=== PATIENT | male | born 1955 | race Caucasian/White ===

== ENCOUNTER → 2017-11-22 12:30 | Outpatient (CLI) | payer MEDICAID, SELFPAY ==
--- NOTE | 2017-11-22 12:36 | XR_ITS ---
XR chest 2V HISTORY: ITS.REASON: COUGH ORDERING PHYSICIAN: Brynn Guillen PATIENT AGE: 62 years COMPARISON: None available FINDINGS: The cardiomediastinal silhouette and pulmonary vascularity are within normal limits. The lungs are clear without infiltrates, suspicious nodules, or pleural effusions. No acute bony abnormalities. IMPRESSION: Negative chest, no acute finding
== END ==
PROVIDERS: PCP Internal Medicine Adolescent Medicine; Visit Provider Nurse Practitioner Family
DX: R05 Cough (principal)
CPT/HCPCS: 71046

== ENCOUNTER → 2017-11-30 08:49 | Outpatient (CLI) | payer MEDICAID, SELFPAY ==
[2017-11-30 09:20] LABS: Basophils # 0.1 K/mm3 (0-0.2); Basophils % 0.9 % (0.1-2.0); Eosinophils # 0.2 K/mm3 (0.0-0.4); Hematocrit 48.3 % (42.0-52.0); Lymphocytes # 2.2 K/mm3 (0.7-4.5); Lymphocytes % 32.5 K/mm3 (10-50); Mean Corpuscular HGB Conc 33.1 g/dL (31.8-35.4); Mean Corpuscular Hemoglobin 28.9 pg (27.0-31.2); Mean Corpuscular Volume 87.4 fl (80-94); Mean Platelet Volume 7.5 fl (7.4-10.4); Monocytes # 0.5 K/mm3 (0.1-1.0); Monocytes % 7.4 % (1.7-9.3); Neutrophils # 3.9 K/mm3 (1.8-7.8); Neutrophils % 56.2 % (37.0-80.0); Platelet Count 273 K/mm3 (142-424); Red Blood Count 5.52 M/mm3 (4.60-6.20); Red Cell Distribution Width 13.4 % (11.5-17.5); White Blood Count 6.9 K/mm3 (4.8-10.8)
[2017-11-30 12:33] LABS: Alanine Aminotransferase 61 U/L (12-78); Albumin Level 3.4 gm/dL (3.4-5.0); Albumin/Globulin Ratio 0.9 (1.1-1.8); Alkaline Phosphatase 72 U/L (46-116); Anion Gap 11.6 mEq/L (5-15); Aspartate Amino Transferase 31 U/L (15-37); Bilirubin,Total 0.3 mg/dL (0.2-1.0); Blood Urea Nitrogen 25 mg/dL (7-18); Calcium 9.1 mg/dL (8.5-10.1); Carbon Dioxide 29 mmol/L (21.0-32.0); Chloride 105 mmol/L (98-107); Chol/HDL Ratio 4.6 (1-3.5); Cholesterol 157 mg/dL (140-200); Creatinine,Serum 0.91 mg/dL (0.70-1.30); Estimated Glomerular Filt Rate 85 ml/min (>60); GFR (African American) 103 ML/MIN (>60); Globulin 3.8 gm/dl (1.3-3.2); Glucose 100 mg/dL (74-106); HDL Cholesterol 34 mg/dL (27-67); LDL Cholesterol 105 mg/dL (0-130); Potassium 3.6 mmoL/L (3.5-5.1); Sodium 142 mmol/L (136-145); Total Protein,Serum 7.2 gm/dL (6.4-8.2); Triglycerides 92 mg/dL (30-200); VLDL Cholesterol 18 mg/dL (0-40)
== END ==
PROVIDERS: Visit Provider Internal Medicine Adolescent Medicine
DX: E78.5 Hyperlipidemia, unspecified (principal); I10 Essential (primary) hypertension; R05 Cough
CPT/HCPCS: 36415; 80053; 80061; 85025

== ENCOUNTER 2018-07-18 14:49 | Inpatient (IN) ==
--- NOTE | 2018-07-18 16:01 | Emergency Department Note ---
ED Disposition Clinical Impression: SBO (small bowel obstruction) Abdominal pain Qualifiers: Abdominal location: periumbilical Qualified Code(s): R10.33 - Periumbilical pain Disposition: Admitted as Observation Condition on Discharge: Fair Instructions: DI for Acute Abdomen, Acute Abdominal Pain Additional Instructions: DI for Small Bowel Obstruction DI for Paraumbilical Hernia-incarcerated Referrals: Brynn Guillen APRN [Primary Care Provider] - - Critical Care Critical Care Time: No Attestation: On 07/18/18, the high probability of a clinically significant, sudden or life threatening deterioration of the following system(s) required my full and direct attention, intervention and personal management. The time I documented below is in addition to time spent performing reported procedures but includes the following listed in this critical care notation. Medical Decision Making - Medical Records Medical records reviewed: Yes: I reviewed the patient's medical records. - Tobin Inquiry Pt receiving controlled substance: No Tobin was queried for this patient: No Vital Signs: 07/18/18 14:55 07/18/18 16:19 07/18/18 16:59 Temperature 97.8 F Temperature Source Oral Tympanic Pulse Rate [Right Brachial] 71 87 81 Respiratory Rate 20 20 Blood Pressure [Right Arm] 142/98 H 143/93 H 136/89 Blood Pressure Mean [Right Arm] 112 109 104 Blood Pressure Source [Right Arm] Automatic Cuff Automatic Cuff Automatic Cuff Blood Pressure Position [Right Arm] Sitting Sitting Sitting 02 Sat by Pulse Oximetry 97 94 L 96 Oxygen Delivery Method Room Air Room Air Room Air 07/18/18 17:42 Temperature Temperature Source Pulse Rate [Right Brachial] 67 Respiratory Rate Blood Pressure [Right Arm] 138/85 Blood Pressure Mean [Right Arm] 102 Blood Pressure Source [Right Arm] Automatic Cuff Blood Pressure Position [Right Arm] Sitting 02 Sat by Pulse Oximetry 96 Oxygen Delivery Method Room Air - Lab Data Lab results reviewed: Yes: I reviewed the patient's lab results. Lab Results 07/18/18 15:45: WBC 9.7, RBC 5.92, Hgb 16.5, Hct 50.7, MCV 85.5, MCH 27.9, MCHC 32.6, RDW 13.1, Plt Count 246, MPV 6.9 L, Neut % (Auto) 73.5, Lymph % (Auto) 19.3, [place] % (Auto) 6.3, Eos % (Auto) 0.5, Baso % (Auto) 0.5, Neut # (Auto) 7.1, Lymph # (Auto) 1.9, [place] # (Auto) 0.6, Eos # (Auto) 0.0, Baso # (Auto) 0.1 07/18/18 15:45: Sodium 134 L, Potassium 3.9, Chloride 97 L, Carbon Dioxide 27, Anion Gap 13.9, BUN 23 H, Creatinine 0.85, Estimated Creat Clear 92, Estimated GFR 92, Est GFR ( Amer) 111, Glucose 110 H, Calcium 9.4 Result diagrams: 07/18/18 15:45 07/18/18 15:45 Orders (Tests/Meds): ED MEDICATIONS Discontinued Medications Generic Name Dose Route Start Last Admin Trade Name Freq PRN Reason Stop Dose Admin Diatrizoate Meglum/Diatrizoate Sod 30 ml 07/18/18 15:55 07/18/18 16:02 Gastrografin 66%-10% 30ml PO 07/18/18 15:56 30 ml ONCE ONE Administration Iopamidol 75 ml 07/18/18 17:47 07/18/18 17:48 [id number]; 75ml Vial IV 07/18/18 17:48 75 ml ONCE ONE Administration Protocol Ketorolac Tromethamine 30 mg 07/18/18 15:56 07/18/18 16:02 Toradol 30mg/Ml Vial IV 07/18/18 15:57 30 mg ONCE ONE Administration Sodium Chloride 10 ml 07/18/18 17:47 07/18/18 17:48 Rad-Saline Flush 10ml Syringe IV 07/18/18 17:48 10 ml ONCE ONE Administration ORDERS Category Date Time Status CT abdomen pelvis w con Stat Cat Scan 07/18/18 15:55 Taken - CT Data CT Scan: Abdomen, Pelvis Time Received: 18:[address] Reviewed: Yes: I have reviewed the patient's CT results, I have viewed the radiologist's interpretation Preliminary Findings: Abnormal (High grade small bowel obstruction) - Physician Consults Physician Consulted: Dr. Hong Time: 18:25 (Surgery.Admit.) Reason -: Admission, Pt condition Abdominal Pain HPI - General Chief Complaint: Abdominal Pain Stated Complaint: abd pain Time Seen by Provider: 07/18/18 15:56 Mode of Arrival: Family Vehicle Source of Information: Patient Limitations: No Limitations Description of Symptoms (Recalled from ER Triage Doc. by RN): C/O ABDOMINAL PAIN SINCE NOON R/T UMBILOICAL HERNIA. USUALLY RESOLVES AFTER LYING ODWN OR APPLYING A BACK BRACE BUT NO RELIEF TODAY. ALSO C/O BM BEING YELLOW X 10-14 DAYS - History of Present Illness MD complaint: abdominal pain Onset (ago): hour(s) (3) Consistency: constant Location: periumbilical Severity: moderate Severity scale (1-10): 7 Quality: dull Radiation: none Migration to: no migration Relieving factors: nothing Exacerbating factors: nothing - Related Data Home Medications Medication Instructions Recorded Confirmed Atorvastatin Calcium [Atorvastatin 20 mg PO HS 07/18/18 07/18/18 20mg Tab] Lisinopril [Lisinopril 20mg Tab] 20 mg PO DAILY 07/18/18 07/18/18 Mvit,Calcium,Iron,Mins/A.acids 1 each PO DAILY 07/18/18 07/18/18 [K-[place] Double Strength Capsule] Omeprazole [Omeprazole 40mg 40 mg PO DAILY 07/18/18 07/18/18 Capsule] cloNIDine HCl [cloNIDine 0.1mg 0.1 mg PO BID 07/18/18 07/18/18 Tablet] clonazePAM [Clonazepam] 1 mg PO HS 07/18/18 07/18/18 hydroCHLOROthiazide [HCTZ 25mg 25 mg PO DAILY 07/18/18 07/18/18 tab] Allergies Allergy/AdvReac Type Severity Reaction Status Date / Time No Known Allergies Allergy Verified 07/18/18 15:04 [facility] History I have reviewed the patient's past medical history: Yes Medical History: Reports:: Cancer (SKIN CANCER) - Social History Alcohol Intake: never - Psychiatric History Expresses thoughts of harming self/others: None Suicide Plan Description: No Plan ROS Obtained: Yes All systems reviewed & no additional complaints - Constitutional Constitutional: Reports system reviewed and no additional complaints, except as docu, Denies chills, Denies fever(s) - Cardiovascular Cardiovascular: Reports system reviewed and no additional complaints, except as docu, Denies chest pain, Denies dyspnea - Respiratory Respiratory: Yes system reviewed and no additional complaints, except as docu, No dyspnea - Gastrointestinal Gastrointestingal: Reports: system reviewed and no additional complaints, except as docu, abdominal pain. Denies: diarrhea, nausea, vomiting - Neurologic Neurologic: Reports system reviewed and no additional complaints, except as docu, Denies dizziness, Denies headache(s) Physical Exam - General General appearance: alert, in distress (mild) - Head Head exam: atraumatic, normocephalic, normal inspection - Respiratory Respiratory exam: Present: normal lung sounds bilaterally. Absent: respiratory distress - Cardiovascular Cardiovascular exam: Present: regular rate, normal rhythm. Absent: JVD - Abdominal Exam Abdominal exam: Present: soft, tenderness, normal bowel sounds. Absent: distention, guarding, organomegaly Abdominal tenderness: Present: RLQ, moderate Comment: Periumbilical tenderness - Back Exam Back exam: Present: normal inspection. Absent: tenderness - Neurological Exam Neurological exam: Present: alert, oriented X3 - Psychiatric Psychiatric exam: Present: normal affect, normal mood
[2018-07-18 16:06] LABS: Basophils # 0.1 K/mm3 (0-0.2); Basophils % 0.5 % (0.1-2.0); Eosinophils % 0.5 % (0.1-12.0); Hematocrit 50.7 % (42.0-52.0); Hemoglobin 16.5 g/dL (14.1-18.0); Lymphocytes # 1.9 K/mm3 (0.7-4.5); Lymphocytes % 19.3 % (10-50); Mean Corpuscular HGB Conc 32.6 g/dL (31.8-35.4); Mean Corpuscular Hemoglobin 27.9 pg (27.0-31.2); Mean Corpuscular Volume 85.5 fl (80-94); Mean Platelet Volume 6.9 fl (7.4-10.4); Monocytes # 0.6 K/mm3 (0.1-1.0); Monocytes % 6.3 % (1.7-9.3); Neutrophils # 7.1 K/mm3 (1.8-7.8); Neutrophils % 73.5 % (37.0-80.0); Platelet Count 246 K/mm3 (142-424); Red Blood Count 5.92 M/mm3 (4.60-6.20); Red Cell Distribution Width 13.1 % (11.5-17.5); White Blood Count 9.7 K/mm3 (4.8-10.8)
[2018-07-18 16:09] LABS: Anion Gap 13.9 mEq/L (5-15); Calcium 9.4 mg/dL (8.5-10.1); Potassium 3.9 mmoL/L (3.5-5.1)
[2018-07-18 19:05] LABS: INR 1.04 (0.9-1.1); Prothrombin Time 10.7 seconds (9.4-11.8)
[2018-07-18 19:10] LABS: Activated Partial Thrombo Time 25.4 seconds (23.6-34.0)
--- NOTE | 2018-07-18 21:04 | Operative Note ---
Date of procedure: 07/18/18 Pre-op Diagnosis:: Incarcerated periumbilical hernia with small bowel obstruction Post-op Diagnosis:: Same Procedure performed:: Open repair of incarcerated periumbilical hernia Surgeon:: Rod Hong MD [employer] CLEANER:: Gustavo Pedroza Anesthesia: GETA Estimated blood loss (mL): 25 Operative findings:: Incarcerated preperitoneal fat and incarcerated small bowel loop Small bowel viable Operative note:: After informed consent was obtained the patient was taken to the operating room and placed in the supine position. General anesthesia was induced and his abdomen was prepped and draped in a sterile fashion. Palpation revealed at least partial reduction of the incarcerated loop with anesthesia. An incision was made overlying the area of incarceration. A combination of sharp dissection, blunt dissection, and dissection with electrocautery was utilized to dissect through the subcutaneous tissue. Careful dissection with Metzenbaum scissors was utilized to free the fascial margin. A small loop of bowel was noted and a small portion of incarcerated preperitoneal fat noted. All contents were carefully returned to the abdominal cavity. For improved inspection of the small bowel the medial and lateral margins of the fascia were slightly extended with electrocautery. The underlying small bowel was carefully elevated. Inspection revealed the tissue to be normal with no signs of ischemia or injury. All contents were returned and fascia was reapproximated with interrupted 0 Ethibond. The wound was irrigated and skin was closed with troy. Dressings were applied. The patient's anesthetic agents were reversed and he was extubated prior to transfer to recovery. Condition: stable Disposition: PACU Specimens:: None Complications:: No immediate
--- NOTE | 2018-07-18 21:18 | Progress Note ---
[facility] Anesthesia Checklist - Patient Identification Patient Identification: Arm Band, Verbal (Name & ) - Structural Data Admitted From: Home Planned Operative Procedure/s: open hernia repair Consent for Planned Operative Procedure(s) Verified: Yes Verified Documents: Surgical Consent - NPO Status Verified Time NPO: 12:00 - Additional verifications Patient : No Anesthesia Reactions: No Hx Blood Transfusions: No Blood Transfusion Reaction: No Cephalosporin Allergy: No Previous Colonoscopy: No - Cardiovascular Assessment Heart Sounds: S1 & S2 Pulse Strength: Baseline Pulse Rhythm: Regular Peripheral Edema: No - Airway Assessment C-Spine Mobility Assessed: Yes TMJ Mobility Assessed: Yes Dentition: Good Dentition - Neurological Assessment Level of Consciousness: Awake, Alert, Appropriate Hx Seizures: No Numbness or tingling in extremities: No - Anesthesia Plan Anesthesia Risk discussed: Yes Anesthesia Plan: Verified ASA Class: II Anesthesia Type: General [facility] History I have reviewed the patient's past medical history: Yes Medical History: Reports:: Cancer (SKIN CANCER) - *Social History Alcohol Intake: never - Psychiatric History Expresses thoughts of harming self/others: None Suicide Plan Description: No Plan
--- NOTE | 2018-07-18 21:19 | Progress Note ---
[facility] Anesthesia Record Part I Intake, IV Amount: 800 Estimated blood loss (mL): 10 Urine output (mL): 100 Blood Products used (#): none Blood Pressure: 137/86 SaO2: 94 Pulse Rate: 97 Respiratory Rate: 20 Temperature: 97.7 F Patient is:: Awake, Nasal O2, Stable Stable to PACU at:: 21:14
--- NOTE | 2018-07-18 21:19 | Progress Note ---
[facility] Anesthesia Record Part II Discharge Time: 21:44 Destination: Medical Surgical Department PACU nurse assessment reviewed?: Yes Patient Condition:: Good Anesthesia Complications:: None
[2018-07-19 07:01] LABS: Basophils % 0.2 % (0.1-2.0); Hematocrit 45.5 % (42.0-52.0); Hemoglobin 14.9 g/dL (14.1-18.0); Lymphocytes # 1.2 K/mm3 (0.7-4.5); Lymphocytes % 8.6 % (10-50); Mean Corpuscular HGB Conc 32.8 g/dL (31.8-35.4); Mean Corpuscular Hemoglobin 28.1 pg (27.0-31.2); Mean Corpuscular Volume 85.6 fl (80-94); Mean Platelet Volume 7.3 fl (7.4-10.4); Monocytes # 0.7 K/mm3 (0.1-1.0); Monocytes % 4.8 % (1.7-9.3); Neutrophils # 11.9 K/mm3 (1.8-7.8); Neutrophils % 86.4 % (37.0-80.0); Platelet Count 245 K/mm3 (142-424); Red Blood Count 5.31 M/mm3 (4.60-6.20); Red Cell Distribution Width 13.3 % (11.5-17.5); White Blood Count 13.7 K/mm3 (4.8-10.8)
[2018-07-19 07:12] LABS: Anion Gap 13.3 mEq/L (5-15); Calcium 8.5 mg/dL (8.5-10.1); Potassium 4.3 mmoL/L (3.5-5.1)
--- NOTE | 2018-07-19 07:16 | Progress Note ---
Subjective Patient reports: feels better Exam Vital signs and Labs for Last 24 Hours: Temp Pulse Resp BP Pulse Ox 98.4 F 85 16 115/77 94 L 07/19/18 04:01 07/19/18 04:01 07/19/18 04:01 07/19/18 04:01 07/19/18 04:01 Laboratory Results - last 24 hr 07/18/18 15:45: WBC 9.7, RBC 5.92, Hgb 16.5, Hct 50.7, MCV 85.5, MCH 27.9, MCHC 32.6, RDW 13.1, Plt Count 246, MPV 6.9 L, Neut % (Auto) 73.5, Lymph % (Auto) 19.3, [place] % (Auto) 6.3, Eos % (Auto) 0.5, Baso % (Auto) 0.5, Neut # (Auto) 7.1, Lymph # (Auto) 1.9, [place] # (Auto) 0.6, Eos # (Auto) 0.0, Baso # (Auto) 0.1 07/18/18 15:45: Sodium 134 L, Potassium 3.9, Chloride 97 L, Carbon Dioxide 27, Anion Gap 13.9, BUN 23 H, Creatinine 0.85, Estimated Creat Clear 92, Estimated GFR 92, Est GFR ( Amer) 111, Glucose 110 H, Calcium 9.4 07/18/18 15:45: PT 10.7, INR 1.04, APTT 25.4 07/19/18 00:00: Urine Color Yellow, Urine Appearance Clear, Urine pH 6.5, Ur Specific [place] 1.015, Urine Protein Negative, Urine Glucose (UA) Negative, Urine Ketones Trace, Urine Blood Negative, Urine Nitrate Negative, Urine Bilirubin Negative, Urine Urobilinogen 0.2, Ur Leukocyte Esterase Negative, Urine WBC Occasional, Urine Bacteria Trace 07/19/18 06:30: WBC 13.7 H D, RBC 5.31, Hgb 14.9, Hct 45.5, MCV 85.6, MCH 28.1, MCHC 32.8, RDW 13.3, Plt Count 245, MPV 7.3 L, Neut % (Auto) 86.4 H, Lymph % (Auto) 8.6 L, [place] % (Auto) 4.8, Eos % (Auto) 0.0 L, Baso % (Auto) 0.2, Neut # (Auto) 11.9 H, Lymph # (Auto) 1.2, [place] # (Auto) 0.7, Eos # (Auto) 0.0, Baso # (Auto) 0.0 07/19/18 06:30: Sodium 134 L, Potassium 4.3, Chloride 101, Carbon Dioxide 24, Anion Gap 13.3, BUN 21 H, Creatinine 0.88, Estimated Creat Clear 90, Estimated GFR 88, Est GFR ( Amer) 107, Glucose 135 H D, Calcium 8.5 I & O for Last 24 hours: Intake & Output 07/16/18 07/17/18 07/18/18 07/19/18 11:59 11:59 11:59 11:59 Intake Total 1560 / 1560 Output Total 700 / 700 Balance 860 / 860 Weight 181 lb 5 oz - Constitutional no acute distress - *Routine Respiratory Exam Absent: respiratory distress - *Routine Cardiovascular Exam Present: RRR - *Routine Abdominal Exam Present: soft Progress Note: A&P (1) Umbilical hernia, incarcerated Status: Acute Assessment and plan: Overall, doing well status post open repair (no mesh) Remove Rodriguez catheter Increase ambulation Await return of bowel function Current Visit: Yes (2) SBO (small bowel obstruction) Status: Acute Current Visit: Yes
--- NOTE | 2018-07-19 08:21 | Pharmacy Consult Notes ---
[facility] Pharmacy VTE Monitoring - Patient Demographics Admission date: 07/19/18 Report Date: 07/19/18 Time: 08:20 Allergies/Adverse Reactions: Patient Allergies No Known Allergies Allergy (Verified 07/18/18 15:04) Height: 1.7 m Weight: 82.242 kg Patient Problems: Current Active Problems Abdominal pain (Acute) SBO (small bowel obstruction) (Acute) Umbilical hernia, incarcerated (Acute) - VTE Risk Labs: VTE Related Lab Results Hgb 14.9 g/dL (14.1-18.0) 07/19/18 06:30 Hct 45.5 % (42.0-52.0) 07/19/18 06:30 Plt Count 245 K/mm3 (142-424) 07/19/18 06:30 PT 10.7 seconds (9.4-11.8) 07/18/18 15:45 INR 1.04 (0.9-1.1) 07/18/18 15:45 APTT 25.4 seconds (23.6-34.0) 07/18/18 15:45 BUN 21 mg/dL (7-18) H 07/19/18 06:30 Creatinine 0.88 mg/dL (0.70-1.30) 07/19/18 06:30 Estimated Creat Clear 90 mL/min (50-200) 07/19/18 06:30 Was VTE Risk Assessment Performed: Yes VTE Score: 2 VTE Risk Level: Very Low Risk Clinical Trial Participant: No - Prophylaxis VTE Prophylaxis Ordered?: Yes Types of VTE Prophylaxis: TEDS Knee High Location of Applied Device: Bilateral Lower Extremeties
[2018-07-19 08:56] LABS: Lymphocytes % 9 % (10-50); Monocytes % 2 % (2-9); Neutrophils % 89 % (42-76); Total Cells Counted 100
[2018-07-20 06:33] LABS: Basophils # 0.1 K/mm3 (0-0.2); Basophils % 0.5 % (0.1-2.0); Eosinophils # 0.1 K/mm3 (0.0-0.4); Eosinophils % 0.8 % (0.1-12.0); Hematocrit 43.6 % (42.0-52.0); Hemoglobin 14.2 g/dL (14.1-18.0); Lymphocytes # 2.7 K/mm3 (0.7-4.5); Lymphocytes % 24.6 % (10-50); Mean Corpuscular HGB Conc 32.7 g/dL (31.8-35.4); Mean Corpuscular Hemoglobin 27.9 pg (27.0-31.2); Mean Corpuscular Volume 85.5 fl (80-94); Mean Platelet Volume 7.1 fl (7.4-10.4); Monocytes # 0.7 K/mm3 (0.1-1.0); Monocytes % 6.1 % (1.7-9.3); Neutrophils # 7.6 K/mm3 (1.8-7.8); Platelet Count 215 K/mm3 (142-424); Red Cell Distribution Width 13.3 % (11.5-17.5); White Blood Count 11.1 K/mm3 (4.8-10.8)
--- NOTE | 2018-07-20 07:42 | Progress Note ---
Subjective Patient reports: feels better Narrative: Patient has been tolerating full liquid diet without difficulty. Patient feels like he is ready to go home. Exam Vital signs and Labs for Last 24 Hours: Temp Pulse Resp BP Pulse Ox 98.6 F 85 18 126/74 92 L 07/20/18 04:00 07/20/18 04:00 07/20/18 04:00 07/20/18 04:00 07/20/18 04:00 Laboratory Results - last 24 hr 07/19/18 06:30: Total Counted 100, Neutrophils % (Manual) 89 H, Lymphocytes % (Manual) 9 L, Monocytes % (Manual) 2, Platelet Estimate Normal 07/20/18 06:24: WBC 11.1 H, RBC 5.10, Hgb 14.2, Hct 43.6, MCV 85.5, MCH 27.9, MCHC 32.7, RDW 13.3, Plt Count 215, MPV 7.1 L, Neut % (Auto) 68.0, Lymph % (Auto) 24.6, [place] % (Auto) 6.1, Eos % (Auto) 0.8, Baso % (Auto) 0.5, Neut # (Auto) 7.6, Lymph # (Auto) 2.7, [place] # (Auto) 0.7, Eos # (Auto) 0.1, Baso # (Auto) 0.1 I & O for Last 24 hours: Intake & Output 07/17/18 07/18/18 07/19/18 07/20/18 11:59 11:59 11:59 11:59 Intake Total 1560 / 1560 600 / 600 Output Total 700 / 700 Balance 860 / 860 600 / 600 Weight 181 lb 5 oz - *Routine Abdominal Exam Present: soft Comments: Incision clean. Small amount of bruising without hematoma. No evidence of any recurrence. Progress Note: A&P (1) Umbilical hernia, incarcerated Status: Acute Current Visit: Yes (2) SBO (small bowel obstruction) Status: Acute Current Visit: Yes Assessment and Plan for All Diagnoses:: I will see how patient does with breakfast this morning. If he tolerates this and is doing well without increasing pain, nausea, or bleeding may build to be discharged home.
--- NOTE | 2018-07-20 09:40 | Discharge Summary ---
General - General Admission date:: 07/18/18 Discharge date: 07/20/18 HPI HPI: Patient is a 63-year-old developed acute pain focally to the right of the umbilicus approximately noon time on 07/18/18. This was quite severe and he presented to the emergency department at [facility]. Evaluation included CT scan which revealed findings of high-grade obstruction secondary to loop of bowel from incarcerated umbilical hernia. Surgical consultation was obtained. Hospital Course Hospital Course: Patient was seen and examined by Dr. Hong. He was taken emergently to the operating room at which time he underwent primary repair of umbilical hernia with incarcerated loop of small bowel. Loop of small bowel was visualized to be viable without necrosis and no resection was necessary. Please see operative dictation for complete details. He was admitted postoperatively for inpatient management. His diet was cautiously advanced from clear liquid to full liquid. He had his Rodriguez catheter removed on postoperative day #1. The evening of postoperative day #1 he advanced to a full liquid diet and tolerated this without difficulty. Following morning patient was seen and examined. He has a small amount of bruising which seemed inconsequential at the incision site. Patient had consumed full liquid breakfast without any difficulty. He had no nausea or increasing pain or abdominal bloating. He was passing gas. Plan was made for discharge home at this time. Objective Vital signs: Temp Pulse Resp BP Pulse Ox 97.6 F 61 20 118/94 H 96 07/20/18 08:00 07/20/18 08:00 07/20/18 08:00 07/20/18 08:00 07/20/18 08:00 - Detailed Eye Exam Eyelids: Left normal inspection Results Labs on day of discharge: Labs from last 24 hours 07/20/18 06:24 WBC 11.1 H RBC 5.10 Hgb 14.2 Hct 43.6 MCV 85.5 MCH 27.9 MCHC 32.7 RDW 13.3 Plt Count 215 MPV 7.1 L Neut % (Auto) 68.0 Lymph % (Auto) 24.6 [place] % (Auto) 6.1 Eos % (Auto) 0.8 Baso % (Auto) 0.5 Neut # (Auto) 7.6 Lymph # (Auto) 2.7 [place] # (Auto) 0.7 Eos # (Auto) 0.1 Baso # (Auto) 0.1 DS: Diagnosis - Discharge Diagnosis (1) Umbilical hernia, incarcerated Status: Acute (2) SBO (small bowel obstruction) Status: Acute Discharge Plan - Patient Discharge Instructions ACTIVITY: No heavy lifting DIET: advance to your usual diet Patient Instructions: DI for Surgical Site Infection - Follow up Plan Follow up with: Rod Hong MD [Staff Physician] - 07/24/18 Disposition: Home, [facility] Medications: Home Medications Medication Instructions Recorded Confirmed Type Aspirin [Aspir 81] 81 mg PO DAILY 07/18/18 07/18/18 History Lisinopril [Lisinopril 40mg Tablet] 40 mg PO DAILY 07/19/18 07/19/18 History clonazePAM [Clonazepam] 0.5 mg PO HS 07/19/18 07/19/18 History hydroCHLOROthiazide 12.5 mg PO DAILY 07/19/18 07/19/18 History [Hydrochlorothiazide 12.5mg Tab] Prescriptions/Medication Reconciliation: New Hydrocod/Acet 5/325 mg [[place] 5/325mg tablet] 1 - 2 tab PO Q6HP PRN #21 tab PRN Reason: Moderate Pain Continue Aspirin [Aspir 81] 81 mg PO DAILY hydroCHLOROthiazide [Hydrochlorothiazide 12.5mg Tab] 12.5 mg PO DAILY clonazePAM [Clonazepam] 0.5 mg PO HS Lisinopril [Lisinopril 40mg Tablet] 40 mg PO DAILY Discontinued Omeprazole [Omeprazole 40mg Capsule] 40 mg PO DAILY Atorvastatin Calcium [Atorvastatin 20mg Tab] 20 mg PO HS cloNIDine HCl [cloNIDine 0.1mg Tablet] 0.1 mg PO BID Mvit,Calcium,Iron,Mins/A.acids [K-[place] Double Strength Capsule] 1 each PO DAILY
== END 2018-07-20 11:11 | disposition home or self-care (01) ==
LOC: ER 14:49 → 2ND 19:31
PROVIDERS: ADMIT Surgery; ATTEND Surgery

== ENCOUNTER → 2018-12-18 09:41 | Outpatient (CLI) | payer MEDICAID, SELFPAY ==
--- NOTE | 2018-12-18 09:48 | XR_ITS ---
XR hip LT 2-3V w/pelvis HISTORY: Chronic hip pain ORDERING PHYSICIAN: Brynn Guillen PATIENT AGE: 63 years COMPARISON: None FINDINGS: There are mild osteoarthritic changes of both hips as seen on the AP view of the pelvis. Mild osteoarthritis also involves both SI joints and there are facet arthritic changes at L4-L5 and L5-S1 and L3-L4. No fracture or dislocation. Small os acetabuli are noted bilaterally. There is a small benign-appearing cystic lesion in the left femoral neck at 5 mm. There are multiple calcific densities in the perineal area. 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
--- NOTE | 2018-12-18 09:48 | XR_ITS ---
XR sacroiliac joint BI min 3V CLINICAL INDICATION: ITS.REASON: LT HIP PAIN,PAIN OF LT SI JOINT ORDERING PHYSICIAN: Brynn Guillen PATIENT AGE: 63 years Comparison: None FINDINGS: There are mild hypertrophic changes of the SI joints on both sides. No fusion or lytic process evident. IMPRESSION: Mild osteoarthritic change of the SI joints
[2018-12-18 13:07] LABS: Alanine Aminotransferase 45 U/L (12-78); Albumin Level 3.6 gm/dL (3.4-5.0); Albumin/Globulin Ratio 1.1 (1.1-1.8); Alkaline Phosphatase 84 U/L (46-116); Aspartate Amino Transferase 21 U/L (15-37); Bilirubin,Total 0.7 mg/dL (0.2-1.0); Blood Urea Nitrogen 28 mg/dL (7-18); Calcium 9.6 mg/dL (8.5-10.1); Carbon Dioxide 27 mmol/L (21.0-32.0); Chloride 106 mmol/L (98-107); Chol/HDL Ratio 3.6 (1-3.5); Cholesterol 145 mg/dL (140-200); Creatinine,Serum 0.97 mg/dL (0.70-1.30); Estimated Glomerular Filt Rate 79 ml/min (>60); GFR (African American) 95 ML/MIN (>60); Globulin 3.4 gm/dl (1.3-3.2); Glucose 103 mg/dL (74-106); HDL Cholesterol 40 mg/dL (27-67); LDL Cholesterol 93 mg/dL (0-130); Sodium 144 mmol/L (136-145); Triglycerides 58 mg/dL (30-200); VLDL Cholesterol 12 mg/dL (0-40)
== END ==
PROVIDERS: PCP Nurse Practitioner Family; Visit Provider Nurse Practitioner Family
DX: I10 Essential (primary) hypertension (principal); E78.5 Hyperlipidemia, unspecified; M25.552 Pain in left hip; M53.3 Sacrococcygeal disorders, not elsewhere classified
CPT/HCPCS: 36415; 72202; 73502; 80053; 80061

== ENCOUNTER → 2019-05-23 09:37 | Outpatient (CLI) | payer MEDICAID, SELFPAY ==
[2019-05-23 11:13] LABS: Alanine Aminotransferase 42 U/L (12-78); Albumin Level 3.7 gm/dL (3.4-5.0); Albumin/Globulin Ratio 1.1 (1.1-1.8); Alkaline Phosphatase 82 U/L (46-116); Anion Gap 13.5 mEq/L (5-15); Aspartate Amino Transferase 29 U/L (15-37); Bilirubin,Total 0.7 mg/dL (0.2-1.0); Blood Urea Nitrogen 22 mg/dL (7-18); Calcium 9.7 mg/dL (8.5-10.1); Carbon Dioxide 27 mmol/L (21.0-32.0); Chloride 107 mmol/L (98-107); Chol/HDL Ratio 3.8 (1-3.5); Cholesterol 150 mg/dL (140-200); Creatinine,Serum 0.83 mg/dL (0.70-1.30); Estimated Glomerular Filt Rate 94 ml/min (>60); GFR (African American) 114 ML/MIN (>60); Globulin 3.4 gm/dl (1.3-3.2); Glucose 96 mg/dL (74-106); HDL Cholesterol 40 mg/dL (27-67); LDL Cholesterol 92 mg/dL (0-130); Potassium 3.5 mmoL/L (3.5-5.1); Sodium 144 mmol/L (136-145); Total Protein,Serum 7.1 gm/dL (6.4-8.2); Triglycerides 89 mg/dL (30-200); VLDL Cholesterol 18 mg/dL (0-40)
== END ==
PROVIDERS: Visit Provider Nurse Practitioner Family
DX: I10 Essential (primary) hypertension (principal); E78.5 Hyperlipidemia, unspecified
CPT/HCPCS: 36415; 80053; 80061

== ENCOUNTER 2020-02-20 18:47 | Emergency (ER) | payer BC, SELFPAY ==
[2020-02-20 18:47] VITALS: BP 162/110; PULSE 78; RESP 18; TEMP 36.7; O2SAT 99; BMI 29.7
--- NOTE | 2020-02-20 19:01 | XR_ITS ---
PROCEDURE: XR RIBS RT MIN 3V W CXR1V CLINICAL INDICATION: fall Right rib pain following injury COMPARISON: CXR2V XR chest 2V from 11/22/2017 FINDINGS: A frontal view of the chest shows no acute finding. Three views of the right ribs are obtained. There is a subtle lucency through the lateral aspect of the right 8th rib suggesting a nondisplaced fracture. IMPRESSION: Nondisplaced right 8th rib fracture Dictated by: Case Will MD 02/20/2020 22:17 Electronically signed by Case Will MD in [place] 02/20/2020 22:17
--- NOTE | 2020-02-20 19:07 | PC.NURSE ---
to rad at this time
--- NOTE | 2020-02-20 19:21 | HMH.EDGENADL ---
ED Disposition Clinical Impression: Chest wall contusion Disposition: Home, Self-Care Condition on Discharge: Good Instructions: DI for Acute Pain -- Adult Prescriptions: Nabumetone 750 mg PO BID 10 Days #20 tab Transmission Status: Sent to [facility] Tizanidine HCl [Zanaflex 4mg tablet] 4 mg PO TID 10 Days #30 tab Transmission Status: Pending to [facility] Referrals: Brynn Guillen APRN [Primary Care Provider] - - Critical Care Critical Care Time: No Attestation: On 02/20/20, the high probability of a clinically significant, sudden or life threatening deterioration of the following system(s) required my full and direct attention, intervention and personal management. The time I documented below is in addition to time spent performing reported procedures but includes the following listed in this critical care notation. Medical Decision Making - Medical Records Medical records reviewed: Yes: I reviewed the patient's medical records. - Tobin Inquiry Pt receiving controlled substance: No Vital Signs: 02/20/20 18:47 Temperature 98.1 F Temperature Source Oral Pulse Rate [Radial] 78 Respiratory Rate 18 Blood Pressure [Right Arm] 162/110 H Blood Pressure Mean [Right Arm] 127 Blood Pressure Source [Right Arm] Automatic Cuff Blood Pressure Position [Right Arm] Sitting 02 Sat by Pulse Oximetry 99 Oxygen Delivery Method Room Air - Lab Data Lab results reviewed: Yes: I reviewed the patient's lab results. Orders (Tests/Meds): ORDERS Category Date Time Status XR ribs RT min 3V w CXR1V Stat Exams 02/20/20 19:01 Ordered - Radiology Data #1 Image(s): Chest Preliminary Findings: Normal/NAD General Adult HPI - General Chief complaint: PAIN Stated complaint: AO 0618 1500 fell injured r ribs Time Seen by Provider: 02/20/20 19:00 Mode of Arrival: Ambulatory Source of Information: Patient Limitations: No Limitations Description of Symptoms (Recalled from ER Triage Doc. by RN): States he was working on a truck and fell. Complaint of rib pain - History of Present Illness HPI narrative: Very pleasant 64-year-old gentleman presents the ED after a fall out of the bed of a pickup truck. This happened just prior to arrival. He did land on his side and is complaining about some left side pain in his rib cage. No overt pain just minor pain. He states this pain is a sharp/dull sensation that rates his pain 6 out of 10 and that is at its crescendo. Presently his pain is 2 out of 10. He states movement and increasing intrathoracic pressure exacerbates this pain. Rest alleviates the pain. Patient denies any other injury. This injury took place just prior to arrival. - Related Data Home Medications Medication Instructions Recorded Confirmed Aspirin [Aspir 81] 81 mg PO DAILY 07/18/18 07/24/18 clonazePAM [Clonazepam] 0.5 mg PO HS 07/19/18 07/24/18 hydroCHLOROthiazide 12.5 mg PO DAILY 07/19/18 07/24/18 [Hydrochlorothiazide 12.5mg Tab] lisinopriL [Lisinopril 40mg Tablet] 40 mg PO DAILY 07/19/18 07/24/18 Previous Rx's Medication Instructions Recorded Hydrocod/Acet 5/325 mg [Rumsey 1 - 2 tab PO Q6HP PRN #21 tab 07/20/18 5/325mg tablet] Nabumetone 750 mg PO BID 10 Days #20 tab 02/20/20 Tizanidine HCl [Zanaflex 4mg 4 mg PO TID 10 Days #30 tab 02/20/20 tablet] Allergies Allergy/AdvReac Type Severity Reaction Status Date / Time No Known Allergies Allergy Verified 07/24/18 09:18 [facility] History - Hepatitis A Screen Drug use history?: No High risk sexual behaviors?: No History of sexually transmitted infection?: No Currently employed?: No Childcare worker?: No Do you have indoor plumbing?: Yes Do you have electricity?: Yes Attestation statement:: This patient has been screened for Hepatitis A risk factors. I have reviewed the patient's past medical history: Yes Medical History: Reports:: Cancer, Hyperlipidemia, Hypertension Denies:: [place]
[2020-02-20 19:41] VITALS: BP 154/102; PULSE 84; RESP 16; TEMP 36.8; O2SAT 98
== END 2020-02-20 19:42 | disposition home or self-care (01) ==
PROVIDERS: Emergency Provider Family Medicine; PCP Nurse Practitioner Family
DX: S20.219A Contusion of unspecified front wall of thorax, initial encounter (principal); W17.89XA Other fall from one level to another, initial encounter; Y92.89 Other specified places as the place of occurrence of the external cause; Z79.899 Other long term (current) drug therapy; I10 Essential (primary) hypertension; E78.5 Hyperlipidemia, unspecified
CPT/HCPCS: 71101; 99282

== ENCOUNTER 2020-02-24 21:09 | Emergency (ER) | payer BC, SELFPAY ==
[2020-02-24 21:21] VITALS: BP 151/94; PULSE 100; RESP 15; TEMP 37.2; O2SAT 94; BMI 29.7
--- NOTE | 2020-02-24 21:33 | XR_ITS ---
PROCEDURE: XR CHEST 2V CLINICAL HISTORY: pnemonia rule out COMPARISON: CXR2V XR chest 2V from 11/22/2017 XR RIBS RT MIN 3V W CXR1V from 02/20/2020 FINDINGS: Degenerative changes of the lower thoracic spine is present. Lung olivas, cardiac silhouette, and the soft tissues are intact IMPRESSION: Clear lung olivas, degenerative changes of the thoracic spine Dictated by: Kit Castaneda 02/25/2020 08:19 Electronically signed by Kit Castaneda in [place] 02/25/2020 08:19
[2020-02-24 21:50] VITALS: BP 129/98; PULSE 97; RESP 18; O2SAT 93
[2020-02-24 22:05] LABS: Appearance,Urine CLEAR (Clear); Bilirubin,Urine Negative (Negative); Blood, Urine Negative (Negative); Color,Urine YELLOW (Yellow); Glucose,Urine (UA) Negative (Negative); Ketones,Urine Negative (Negative); Leukocyte Esterase,Urine Negative (Negative); Nitrate,Urine Negative (Negative); Protein,Urine Negative (Negative); Specific Gravity, Urine 1.025 (1.005-1.030)
[2020-02-24 22:06] LABS: Microscopic, Urine URINE MICROSCOPIC (MICROSCOPIC)
--- NOTE | 2020-02-24 22:10 | CT_ITS ---
PROCEDURE: CT CHEST WO CON CLINICAL INDICATION: fall on sunday COMPARISON: ABDPELW CT abdomen pelvis w con from 07/18/2018 TECHNIQUE: Axial images obtained with sagittal and coronal reformats. All CT scans at the facility use one or more dose reduction, viz: automated exposure control, ma/kV adjustment per patient size (including targeted exams where dose is matched to indication, i.e. head), or iterative reconstruction technique. FINDINGS: Tracheobronchial tree is unremarkable. There are scattered areas of subsegmental atelectasis throughout the bilateral lung bases. Thyroid is unremarkable. There are coronary artery calcifications. There is no significant mediastinal adenopathy. Hiatal hernia is noted. Soft tissues are unremarkable. There is a remote compression fracture of the body of T8. Partially visualized upper abdominal structures and adrenal glands are unremarkable except for a nonobstructive 3 millimeter left renal calculus. IMPRESSION: Bibasilar atelectasis Dictated by: Kit Castaneda 02/25/2020 08:17 Electronically signed by Kit Castaneda in [facility] 02/25/2020 08:17
[2020-02-24 22:11] LABS: Basophils # 0.1 K/mm3 (0-0.2); Basophils % 0.5 % (0.1-2.0); Chloride 102 mmol/L (98-107); Eosinophils # 0.5 K/mm3 (0.0-0.4); Eosinophils % 4.4 % (0.1-12.0); Hemoglobin 15.6 g/dL (14.1-18.0); Lymphocytes # 2.5 K/mm3 (0.7-4.5); Lymphocytes % 19.7 % (10-50); Mean Corpuscular HGB Conc 35.5 g/dL (31.8-35.4); Mean Corpuscular Hemoglobin 30.2 pg (27.0-31.2); Mean Corpuscular Volume 85.2 fl (80-94); Mean Platelet Volume 7.9 fl (7.4-10.4); Monocytes # 0.8 K/mm3 (0.1-1.0); Neutrophils # 8.7 K/mm3 (1.8-7.8); Neutrophils % 69.5 % (37.0-80.0); Platelet Count 296 K/mm3 (142-424); Red Blood Count 5.16 M/mm3 (4.60-6.20); Red Cell Distribution Width 14.8 % (11.5-17.5); Sodium 138 mmol/L (136-145); White Blood Count 12.5 K/mm3 (4.8-10.8)
[2020-02-24 22:12] LABS: Potassium 3.1 mmoL/L (3.5-5.1)
[2020-02-24 22:13] LABS: Amorphous Sediment,Urine 1+ /lpf; Mucus,Urine Trace /lpf; WBC,Urine Occasional #/hpf (0-3)
[2020-02-24 22:14] LABS: Alanine Aminotransferase 40 U/L (12-78); Albumin Level 4.2 g/dl (3.5-5.0); Albumin/Globulin Ratio 1.3 (1.1-1.8); Alkaline Phosphatase 99 U/L (38-126); Anion Gap 12.1 mEq/L (5-15); Aspartate Amino Transferase 36 U/L (17-59); Bilirubin,Total 0.7 mg/dl (0.2-1.3); Blood Urea Nitrogen 23 mg/dl (9-20); Carbon Dioxide 27 mmol/L (22.0-30.0); Creatinine Clearance Estimated 93 mL/min (50-200); Estimated Glomerular Filt Rate 86 ml/min (>60); GFR (African American) 103 ML/MIN (>60); Globulin 3.3 g/dL (1.3-3.2); Glucose 118 mg/dl (74-100); Total Protein,Serum 7.5 g/dl (6.3-8.2)
[2020-02-24 22:15] LABS: Lactic Acid 0.9 mmol/L (0.7-2.1)
[2020-02-24 22:43] VITALS: BP 155/103; PULSE 95; O2SAT 94
--- NOTE | 2020-02-24 23:02 | HMH.EDFEV ---
ED Disposition Clinical Impression: Pneumonitis Fractured rib Qualifiers: Encounter type: initial encounter Rib fracture type: single rib Fracture type: closed Laterality: right Qualified Code(s): S22.31XA - Fracture of one rib, right side, initial encounter for closed fracture Disposition: Home, Self-Care Condition on Discharge: Good Instructions: DI for Rib Fracture Additional Instructions: fluids and use meds and see pcp for follo wup Prescriptions: levoFLOXacin [Levaquin 500mg tab] 500 mg PO DAILY #7 tab Transmission Status: Pending to [facility] predniSONE [Prednisone 20mg Tab] 20 mg PO BID #10 tab Transmission Status: Pending to [facility] Referrals: Brynn Guillen APRN [Primary Care Provider] - - Critical Care Critical Care Time: No Attestation: On 02/24/20, the high probability of a clinically significant, sudden or life threatening deterioration of the following system(s) required my full and direct attention, intervention and personal management. The time I documented below is in addition to time spent performing reported procedures but includes the following listed in this critical care notation. Medical Decision Making - Medical Records Medical records reviewed: Yes: I reviewed the patient's medical records. - Tobin Inquiry Pt receiving controlled substance: No Vital Signs: 02/24/20 21:21 02/24/20 21:50 02/24/20 22:43 Temperature 98.9 F Temperature Source Oral Pulse Rate [Right Brachial] 100 H 97 H 95 H Respiratory Rate 15 18 Blood Pressure [Right Arm] 151/94 H 129/98 H 155/103 H Blood Pressure Mean [Right Arm] 113 108 120 Blood Pressure Source [Right Arm] Automatic Cuff Automatic Cuff Blood Pressure Position [Right Arm] Sitting Sitting 02 Sat by Pulse Oximetry 94 L 93 L 94 L Oxygen Delivery Method Room Air Room Air Room Air 02/24/20 23:07 Temperature Temperature Source Pulse Rate [Right Brachial] 116 H Respiratory Rate 20 Blood Pressure [Right Arm] 142/104 H Blood Pressure Mean [Right Arm] 116 Blood Pressure Source [Right Arm] Blood Pressure Position [Right Arm] 02 Sat by Pulse Oximetry 95 Oxygen Delivery Method Room Air - Lab Data Lab results reviewed: Yes: I reviewed the patient's lab results. Lab Results 02/24/20 21:54: Urine Color Yellow, Urine Appearance Clear, Urine pH 6.0, Ur Specific [place] 1.025, Urine Protein Negative, Urine Glucose (UA) Negative, Urine Ketones Negative, Urine Blood Negative, Urine Nitrate Negative, Urine Bilirubin Negative, Urine Urobilinogen 2.0, Ur Leukocyte Esterase Negative, Urine WBC Occasional, Amorphous Sediment 1+, Urine Mucus Trace 02/24/20 21:54: WBC 12.5 H, RBC 5.16, Hgb 15.6, Hct 44.0, MCV 85.2, MCH 30.2, MCHC 35.5 H, RDW 14.8, Plt Count 296, MPV 7.9, Neut % (Auto) 69.5, Lymph % (Auto) 19.7, [place] % (Auto) 6.0, Eos % (Auto) 4.4, Baso % (Auto) 0.5, Neut # (Auto) 8.7 H, Lymph # (Auto) 2.5, [place] # (Auto) 0.8, Eos # (Auto) 0.5 H, Baso # (Auto) 0.1 02/24/20 21:54: Sodium 138, Potassium 3.1 L, Chloride 102, Carbon Dioxide 27, Anion Gap 12.1, BUN 23 H, Creatinine 0.90, Estimated Creat Clear 93, Estimated GFR 86, Est GFR ( Amer) 103, Glucose 118 H, Calcium 10.0, Total Bilirubin 0.7, AST 36, ALT 40, Alkaline Phosphatase 99, Total Protein 7.5, Albumin 4.2, Globulin 3.3 H, Albumin/Globulin Ratio 1.3 02/24/20 21:54: Lactate 0.9 Result diagrams: 02/24/20 21:54 02/24/20 21:54 Orders (Tests/Meds): ED MEDICATIONS Generic Name Dose Route Start Last Admin Trade Name Freq PRN Reason Stop Dose Admin Ceftriaxone Sodium 1 gm/ 50 mls @ 100 mls/hr 02/24/20 23:30 02/24/20 23:26 Sodium Chloride IV 03/09/20 23:29 100 mls/hr Q24H HARLEY Administration Protocol Discontinued Medications Generic Name Dose Route Start Last Admin Trade Name Freq PRN Reason Stop Dose Admin Ketorolac Tromethamine 30 mg 02/24/20 23:22 02/24/20 23:25 Toradol 30mg/Ml Vial IV 02/24/20 23:23 30 mg ONCE
[2020-02-24 23:07] VITALS: BP 142/104; PULSE 116; RESP 20; O2SAT 95
[2020-02-24 23:38] VITALS: BP 134/101; PULSE 90; RESP 18; TEMP 37.2; O2SAT 95
== END 2020-02-24 23:53 | disposition home or self-care (01) ==
PROVIDERS: Emergency Provider Emergency Medicine; PCP Nurse Practitioner Family
DX: J18.9 Pneumonia, unspecified organism (principal); S22.31XA Fracture of one rib, right side, initial encounter for closed fracture; W01.0XXA Fall on same level from slipping, tripping and stumbling without subsequent striking against object, initial encounter; E78.5 Hyperlipidemia, unspecified; I10 Essential (primary) hypertension; Z79.899 Other long term (current) drug therapy
CPT/HCPCS: 71046; 71250; 80053; 81001; 83605; 85025; 87040; 96365; 96375; 99284

== ENCOUNTER → 2020-03-15 16:56 | Outpatient (CLI) | payer BC, SELFPAY ==
[2020-03-15 17:03] LABS: Adenovirus,PCR Not Detected (NotDetected); Coronavirus 229E Not Detected (NotDetected); Coronavirus NL63 Not Detected (NotDetected); Coronavirus OC43 Not Detected (NotDetected); Coronovirus HKU1,PCR Not Detected (NotDetected); Human Metapneumovirus Not Detected (NotDetected); Influenza A, PCR Not Detected (NotDetected); Influenza AH1, 2009 Not Detected (NotDetected); Influenza AH1, PCR Not Detected (NotDetected); Influenza AH3,PCR Not Detected (NotDetected); Rhinovirus/Enterovirus Not Detected (NotDetected)
[2020-03-15 17:04] LABS: Bordetella Pertussis Not Detected (NotDetected); Chlamydophila Pneumoniae, PCR Not Detected (NotDetected); Influenza B, PCR Not Detected (NotDetected); Mycoplasma Pneumoniae, PCR Not Detected (NotDetected); Parainfluenza 1, PCR Not Detected (NotDetected); Parainfluenza 2, PCR Not Detected (NotDetected); Parainfluenza 3, PCR Not Detected (NotDetected); Parainfluenza 4, PCR Not Detected (NotDetected); Respiratory Syncytial Virus Not Detected (NotDetected)
--- NOTE | 2020-03-15 17:35 | XR_ITS ---
PROCEDURE: XR CHEST 2V CLINICAL HISTORY: COUGH, ACUTE FEBRILE ILLNESS COMPARISON: CXR2V XR chest 2V from 11/22/2017 XR RIBS RT MIN 3V W CXR1V from 02/20/2020 XR CHEST 2V from 02/24/2020 CT CHEST WO CON from 02/24/2020 FINDINGS: The cardiomediastinal silhouette and pulmonary vascularity are within normal limits. The lungs are clear without infiltrates, suspicious nodules, or pleural effusions. No acute bony abnormalities. IMPRESSION: No acute findings. Dictated by: Case Will MD 03/16/2020 08:03 Electronically signed by Case Will MD in [place] 03/16/2020 08:03
[2020-03-15 17:47] LABS: Basophils # 0.1 K/mm3 (0-0.2); Basophils % 0.5 % (0.1-2.0); Eosinophils # 0.2 K/mm3 (0.0-0.4); Eosinophils % 1.7 % (0.1-12.0); Hematocrit 45.4 % (42.0-52.0); Hemoglobin 15.5 g/dL (14.1-18.0); Lymphocytes # 1.8 K/mm3 (0.7-4.5); Lymphocytes % 14.4 % (10-50); Mean Corpuscular HGB Conc 34.2 g/dL (31.8-35.4); Mean Corpuscular Volume 87.8 fl (80-94); Mean Platelet Volume 7.9 fl (7.4-10.4); Monocytes # 0.7 K/mm3 (0.1-1.0); Monocytes % 5.6 % (1.7-9.3); Neutrophils # 9.5 K/mm3 (1.8-7.8); Neutrophils % 77.8 % (37.0-80.0); Platelet Count 288 K/mm3 (142-424); Red Blood Count 5.16 M/mm3 (4.60-6.20); Red Cell Distribution Width 13.6 % (11.5-17.5); White Blood Count 12.3 K/mm3 (4.8-10.8)
[2020-03-15 18:52] LABS: Chloride 99 mmol/L (98-107); Potassium 3.7 mmoL/L (3.5-5.1); Sodium 138 mmol/L (136-145)
[2020-03-15 18:55] LABS: Anion Gap 15.7 mEq/L (5-15); Blood Urea Nitrogen 21 mg/dl (9-20); Carbon Dioxide 27 mmol/L (22.0-30.0); Estimated Glomerular Filt Rate 98 ml/min (>60); GFR (African American) 119 ML/MIN (>60); Glucose 123 mg/dl (74-100)
[2020-03-17 13:14] LABS: Covid-19 Nasal PCR Sendout Lex Not Detected
== END ==
PROVIDERS: PCP Nurse Practitioner Family; Visit Provider Nurse Practitioner Family
DX: R05 Cough (principal); R50.9 Fever, unspecified; S22.31XD Fracture of one rib, right side, subsequent encounter for fracture with routine healing
CPT/HCPCS: 36415; 71046; 80048; 85025; 87486; 87581; 87633; 87798; U0004

== ENCOUNTER → 2020-03-25 09:31 | Outpatient (CLI) | payer BC, SELFPAY ==
[2020-03-25 11:29] LABS: Coronavirus 19 IgG Antibody Negative (Negative); Coronavirus 19 IgM Antibody Negative (Negative)
== END ==
PROVIDERS: Visit Provider Internal Medicine Gastroenterology
DX: Z01.818 Encounter for other preprocedural examination (principal); Z12.11 Encounter for screening for malignant neoplasm of colon
CPT/HCPCS: 36415; 86328

== ENCOUNTER 2020-03-26 10:36 | Day surgery (SDC) | payer BC, SELFPAY ==
[2020-03-18 14:27] VITALS: BMI 29.7
[2020-03-26] VITALS (7 sets, daily range): BP systolic 102–172; BP diastolic 72–98; PULSE 82–95; RESP 18; TEMP 36.3–36.8; O2SAT 93–97
--- NOTE | 2020-03-26 12:35 | HMH.ANESCL ---
[facility] Anesthesia Checklist - Patient Identification Patient Identification: Arm Band - Structural Data Admitted From: Home Planned Operative Procedure/s: colonoscopy Consent for Planned Operative Procedure(s) Verified: Yes Verified Documents: Surgical Consent, History and Physical - NPO Status Verified Time NPO: 00:00 - Additional verifications Anesthesia Reactions: No Hx Blood Transfusions: No Blood Transfusion Reaction: No - Airway Assessment C-Spine Mobility Assessed: Yes (mp2) TMJ Mobility Assessed: Yes Dentition: Good Dentition - Neurological Assessment Level of Consciousness: Awake, Alert - Anesthesia Plan Anesthesia Risk discussed: Yes Anesthesia Plan: Verified ASA Class: II Anesthesia Type: MAC [facility] History I have reviewed the patient's past medical history: Yes Medical History: Reports:: Cancer (skin), Hyperlipidemia, Hypertension Denies:: Diabetes Mellitus Type 1, Diabetes Mellitus Type 2, Internal Pacemaker, MRSA, Seizures *Have you ever received a pneumonia vaccine?: No *Have you received a flu vaccine this season?: Yes Other Medical History: Denies: Blood Transfusion Reaction Anesthesia experience/problems:: nac Other Surgeries: Yes: Hernia Repair. No: Pacemaker Amputation: No Fractures: No - *Social History Last grade of school completed: High school graduate Smoking Status: Never smoker Alcohol Intake: never Alcohol Intake Frequency:: other Substance Use Type: denies use *Occupational Status:: employed Housing: house Household Members: spouse *Travel in the last 8 weeks: None Family Hx:: No significant family history
--- NOTE | 2020-03-26 12:52 | HMH.PROC ---
[facility] Procedure Note Procedure Note:: Colonoscopy Procedure Report: Colonoscopy with cold snare polypectomy Endoscopist: Franck Lakhani II, MD Referring physician: BRENDAN Jarrett Date of Procedure: March 26, 2020 Equipment: Olympus 180 variable stiffness pediatric colonoscope Sedation: MAC sedation Indication: Mr. Aguilar is a 64-year-old gentleman who is here for follow-up screening/surveillance colonoscopy. He does state that he will get symptomatic uncomplicated diverticulitis rarely and this may occur every 5 years. The patient reports no abdominal pain, weight loss, change in his bowel habits or rectal bleeding. He will occasionally have some spotting of blood from internal hemorrhoids. He reports no family history of colon cancer. This is his third colonoscopy. His last colonoscopy was 10 to 12 years ago (Dr. Mariam Michele) and was normal except for diverticulosis. Procedure: Prior to the procedure, a history and physical exam was performed, and patient's medications and allergies were reviewed. The risks, benefits and alternatives of the sedation and procedure were discussed with the patient. All questions were answered and informed consent was obtained. The patient was brought to the procedure room. Patient identification and proposed procedure were verified by the physician and the nurse. The patient was placed in a left lateral decubitus position and the scope was passed under direct vision. Throughout the procedure, the patient's blood pressure, pulse, and oxygen saturations were monitored continuously. The colonoscopy was accomplished without difficulty. The patient tolerated the procedure well. Findings: On digital rectal examination there was normal rectal tone. There were no external hemorrhoids. The prostate was 2-3+, mildly firm but symmetric without nodules. The colonoscope was introduced through the anal canal to the rectum and advanced to the cecum. The ileocecal valve and appendiceal orifice were identified. The scope was advanced a short distance into the ileum which appeared grossly normal. The scope was then withdrawn into the colon. There were 3 colon polyps (cecum x2 (4 and 9 mm) and transverse x1 (3 mm)) that were removed via cold snare polypectomy. There were scattered extensive diverticuli throughout the descending and sigmoid colon (LEFT colon). The remainder of the colonic mucosa was normal. The rectum itself was normal. Upon retroflexion within the rectum there were grade 2 internal hemorrhoids. The preparation was excellent throughout with Badger Preparation Score of 9. The cecal time was 12 minutes. Impression: 1. Colonic polyps x3 2. Extensive left-sided diverticulosis 3. Grade 2 internal hemorrhoids Plan: I will follow up the polyp pathology and recommend repeat colonoscopy again in 5 years based upon the polyp histology. I would encourage bulk fiber supplementation on a long-term daily maintenance basis.
== END 2020-03-26 13:42 | disposition home or self-care (01) ==
LOC: OUTP 10:38
PROVIDERS: PCP Nurse Practitioner Family; Visit Provider Internal Medicine Gastroenterology
PROC: 0DJD8ZZ Inspection of Lower Intestinal Tract, Via Natural or Artificial Opening Endoscopic (ICD-10-PCS; CPT 45378; principal; 2020-03-26 11:30)
DX: Z12.11 Encounter for screening for malignant neoplasm of colon (principal); K63.5 Polyp of colon; K57.30 Diverticulosis of large intestine without perforation or abscess without bleeding; K64.1 Second degree hemorrhoids; K21.9 Gastro-esophageal reflux disease without esophagitis; E78.5 Hyperlipidemia, unspecified; I10 Essential (primary) hypertension; Z85.828 Personal history of other malignant neoplasm of skin; Z79.899 Other long term (current) drug therapy; Z79.82 Long term (current) use of aspirin
CPT/HCPCS: 45385

== ENCOUNTER → 2020-12-29 10:37 | Outpatient (CLI) | payer BC, SELFPAY ==
[2020-12-29 14:26] LABS: Alanine Aminotransferase 41 U/L (12-78); Albumin Level 4.3 g/dl (3.5-5.0); Albumin/Globulin Ratio 1.7 (1.1-1.8); Alkaline Phosphatase 92 U/L (38-126); Aspartate Amino Transferase 41 U/L (17-59); Bilirubin,Total 0.8 mg/dl (0.2-1.3); Blood Urea Nitrogen 22 mg/dl (9-20); Calcium 10.4 mg/dl (8.4-10.2); Carbon Dioxide 24 mmol/L (22.0-30.0); Chloride 106 mmol/L (98-107); Chol/HDL Ratio 4.6 (1-3.5); Cholesterol 158 mg/dl (140-200); Estimated Glomerular Filt Rate 85 ml/min (>60); GFR (African American) 103 ML/MIN (>60); Globulin 2.6 g/dL (1.3-3.2); Glucose 120 mg/dl (74-100); HDL Cholesterol 34 mg/dl (40-60); Sodium 141 mmol/L (136-145); Total Protein,Serum 6.9 g/dl (6.3-8.2); Triglycerides 112 mg/dl (30-150); VLDL Cholesterol 22 mg/dL (0-40)
[2020-12-29 14:31] LABS: Basophils # 0.1 K/mm3 (0-0.2); Basophils % 1.2 % (0.1-2.0); Eosinophils # 1.4 K/mm3 (0.0-0.4); Eosinophils % 14.8 % (0.1-12.0); Hematocrit 49.4 % (42.0-52.0); Hemoglobin 16.1 g/dL (14.1-18.0); Lymphocytes # 2.1 K/mm3 (0.7-4.5); Lymphocytes % 21.4 % (10-50); Mean Corpuscular HGB Conc 32.5 g/dL (31.8-35.4); Mean Corpuscular Hemoglobin 28.7 pg (27.0-31.2); Mean Corpuscular Volume 88.2 fl (80-94); Mean Platelet Volume 8.8 fl (7.4-10.4); Monocytes # 0.7 K/mm3 (0.1-1.0); Monocytes % 7.1 % (1.7-9.3); Neutrophils # 5.3 K/mm3 (1.8-7.8); Neutrophils % 55.4 % (37.0-80.0); Platelet Count 305 K/mm3 (142-424); Red Cell Distribution Width 14.6 % (11.5-17.5); White Blood Count 9.6 K/mm3 (4.8-10.8)
[2020-12-29 14:38] LABS: Direct LDL Cholesterol 101.03 mg/dL (100-129)
[2020-12-29 14:59] LABS: Prostate Specific Ag Screen 2.5 ng/ml (0.0-4.0)
[2020-12-31 12:47] LABS: Hemoglobin A1C 6.4 % (4.0-6.0)
== END ==
PROVIDERS: Visit Provider Nurse Practitioner Family
DX: I10 Essential (primary) hypertension (principal); E78.5 Hyperlipidemia, unspecified; R73.9 Hyperglycemia, unspecified; Z12.5 Encounter for screening for malignant neoplasm of prostate
CPT/HCPCS: 36415; 80053; 80061; 83036; 85025; G0103

== ENCOUNTER 2021-01-26 15:58 | Outpatient (CLI) | payer BC, SELFPAY ==
[2021-01-26 16:15] VITALS: BP 131/78; PULSE 82; RESP 17; TEMP 36.6; O2SAT 96
== END 2021-01-26 16:21 | disposition home or self-care (01) ==
LOC: INF 16:00
PROVIDERS: PCP Nurse Practitioner Family; Visit Provider Nurse Practitioner Family
DX: M10.9 Gout, unspecified (principal)
CPT/HCPCS: 96372

== ENCOUNTER 2021-03-31 17:06 | Emergency (ER) | payer BC, SELFPAY ==
[2021-03-31 17:07] VITALS: BP 133/78; PULSE 99; RESP 18; TEMP 37.9; O2SAT 97; BMI 31.4
[2021-03-31 17:30] VITALS: BP 133/78; PULSE 104; O2SAT 94
[2021-03-31 18:00] VITALS: BP 142/82; PULSE 97; O2SAT 95
--- NOTE | 2021-03-31 18:06 | XR_ITS ---
PROCEDURE INFORMATION: Exam: XR Chest Exam date and time: 03/31/2021 6:06 PM Age: 65 years old Clinical indication: Patient HX: Fever and back pain TECHNIQUE: Imaging protocol: XR of the chest. Views: 2 views. COMPARISON: CR XR CHEST 2V 03/15/2020 5:29 PM FINDINGS: Lungs: Unremarkable. No consolidation. . Mild atelectasis in the lung bases Pleural spaces: Unremarkable. No pleural effusion. No pneumothorax. Heart/Mediastinum: Unremarkable. No cardiomegaly. Bones/joints: Unremarkable. IMPRESSION: No acute findings.
[2021-03-31 18:16] LABS: Basophils # 0.1 K/mm3 (0-0.2); Basophils % 0.6 % (0.1-2.0); Eosinophils # 0.1 K/mm3 (0.0-0.4); Eosinophils % 0.7 % (0.1-12.0); Hematocrit 47.4 % (42.0-52.0); Hemoglobin 15.8 g/dL (14.1-18.0); Lymphocytes # 1.9 K/mm3 (0.7-4.5); Mean Corpuscular HGB Conc 33.2 g/dL (31.8-35.4); Mean Corpuscular Hemoglobin 27.9 pg (27.0-31.2); Mean Corpuscular Volume 83.9 fl (80-94); Monocytes % 7.1 % (1.7-9.3); Neutrophils # 11.2 K/mm3 (1.8-7.8); Neutrophils % 78.6 % (37.0-80.0); Platelet Count 266 K/mm3 (142-424); Red Blood Count 5.65 M/mm3 (4.60-6.20); Red Cell Distribution Width 15.5 % (11.5-17.5); White Blood Count 14.2 K/mm3 (4.8-10.8)
[2021-03-31 18:19] LABS: Chloride 103 mmol/L (98-107); Potassium 3.7 mmoL/L (3.5-5.1); Sodium 141 mmol/L (136-145)
[2021-03-31 18:21] LABS: Blood Urea Nitrogen 21 mg/dl (9-20); Creatinine Clearance Estimated 95 mL/min (50-200); Estimated Glomerular Filt Rate 98 ml/min (>60); GFR (African American) 118 ML/MIN (>60)
[2021-03-31 18:22] LABS: Alanine Aminotransferase 35 U/L (12-78); Albumin Level 4.4 g/dl (3.5-5.0); Albumin/Globulin Ratio 1.4 (1.1-1.8); Alkaline Phosphatase 127 U/L (38-126); Anion Gap 13.7 mEq/L (5-15); Aspartate Amino Transferase 37 U/L (17-59); Bilirubin,Total 0.9 mg/dl (0.2-1.3); Calcium 9.9 mg/dl (8.4-10.2); Carbon Dioxide 28 mmol/L (22.0-30.0); Globulin 3.2 g/dL (1.3-3.2); Glucose 122 mg/dl (74-100); Total Protein,Serum 7.6 g/dl (6.3-8.2)
[2021-03-31 18:24] LABS: Microscopic, Urine URINE MICROSCOPIC (MICROSCOPIC)
[2021-03-31 18:25] LABS: Color,Urine YELLOW (Yellow)
[2021-03-31 18:26] LABS: Appearance,Urine CLEAR (Clear); Bilirubin,Urine Negative (Negative); Blood, Urine Negative (Negative); Glucose,Urine (UA) Negative (Negative); Ketones,Urine TRACE (Negative); Leukocyte Esterase,Urine Negative (Negative); Nitrate,Urine Negative (Negative); Protein,Urine Negative (Negative); Specific Gravity, Urine 1.025 (1.005-1.030); Urobilinogen,Urine 0.2 EU/dl (0.2)
[2021-03-31 18:28] LABS: Squamous Epithelial Cell,Urine Occasional #/hpf (0-5)
[2021-03-31 18:53] VITALS: BP 128/88; PULSE 98; RESP 18; TEMP 37.5; O2SAT 95
[2021-03-31 19:02] LABS: Coronavirus 19, PCR Not Detected (NotDetected); Influenza A, PCR Not Detected (NotDetected); Influenza B, PCR Not Detected (NotDetected)
--- NOTE | 2021-03-31 19:14 | HMH.EDGENADL ---
ED Disposition Clinical Impression: Leukocytosis Qualifiers: Leukocytosis type: unspecified Qualified Code(s): D72.829 - Elevated white blood cell count, unspecified Abdominal pain Qualifiers: Abdominal location: generalized Qualified Code(s): R10.84 - Generalized abdominal pain Disposition: Home, Self-Care Condition on Discharge: Good Instructions: DI for Acute Abdominal Pain Referrals: Brynn Guillen APRN [Primary Care Provider] - (As scheduled) Time of Disposition: 19:19 - Critical Care Critical Care Time: No Attestation: On 03/31/21, the high probability of a clinically significant, sudden or life threatening deterioration of the following system(s) required my full and direct attention, intervention and personal management. The time I documented below is in addition to time spent performing reported procedures but includes the following listed in this critical care notation. Medical Decision Making - Medical Records Medical records reviewed: Yes: I reviewed the patient's medical records. - Tobin Inquiry Pt receiving controlled substance: No Vital Signs: 03/31/21 17:07 03/31/21 17:30 03/31/21 18:00 Temperature 100.3 F H Temperature Source Oral Pulse Rate 104 H 97 H Pulse Rate [Right Radial] 99 H Respiratory Rate 18 Blood Pressure 133/78 142/82 H Blood Pressure [Right Arm] 133/78 Blood Pressure Mean [Right Arm] 96 Blood Pressure Source [Right Arm] Automatic Cuff Blood Pressure Position Blood Pressure Position [Right Arm] Sitting 02 Sat by Pulse Oximetry 97 94 L 95 Oxygen Delivery Method Room Air 03/31/21 18:53 Temperature 99.5 F Temperature Source Oral Pulse Rate 98 H Pulse Rate [Right Radial] Respiratory Rate 18 Blood Pressure 128/88 Blood Pressure [Right Arm] Blood Pressure Mean [Right Arm] Blood Pressure Source [Right Arm] Blood Pressure Position Supine Blood Pressure Position [Right Arm] 02 Sat by Pulse Oximetry 95 Oxygen Delivery Method Room Air - Lab Data Lab results reviewed: Yes: I reviewed the patient's lab results. Lab Results 03/31/21 17:22: Sodium 141, Potassium 3.7, Chloride 103, Carbon Dioxide 28, Anion Gap 13.7, BUN 21 H, Creatinine 0.80, Estimated Creat Clear 95, Estimated GFR 98, Est GFR ( Amer) 118, Glucose 122 H, Calcium 9.9, Total Bilirubin 0.9, AST 37, ALT 35, Alkaline Phosphatase 127 H, Total Protein 7.6, Albumin 4.4, Globulin 3.2, Albumin/Globulin Ratio 1.4 03/31/21 17:52: WBC 14.2 H, RBC 5.65, Hgb 15.8, Hct 47.4, MCV 83.9, MCH 27.9, MCHC 33.2, RDW 15.5, Plt Count 266, MPV 8.0, Neut % (Auto) 78.6, Lymph % (Auto) 13.0, [place] % (Auto) 7.1, Eos % (Auto) 0.7, Baso % (Auto) 0.6, Neut # (Auto) 11.2 H, Lymph # (Auto) 1.9, [place] # (Auto) 1.0, Eos # (Auto) 0.1, Baso # (Auto) 0.1 03/31/21 18:15: Urine Color Yellow, Urine Appearance Clear, Urine pH 6.0, Ur Specific [place] 1.025, Urine Protein Negative, Urine Glucose (UA) Negative, Urine Ketones Trace, Urine Blood Negative, Urine Nitrate Negative, Urine Bilirubin Negative, Urine Urobilinogen 0.2, Ur Leukocyte Esterase Negative, Urine RBC None, Urine WBC None, Ur Squamous Epith Cells Occasional, Urine Bacteria None Result diagrams: 03/31/21 17:52 03/31/21 17:22 Orders (Tests/Meds): ED MEDICATIONS Discontinued Medications Generic Name Dose Route Start Last Admin Trade Name Freq PRN Reason Stop Dose Admin Acetaminophen 650 mg 03/31/21 18:06 03/31/21 18:20 Acetaminophen 325mg Tab PO 03/31/21 18:07 650 mg ONCE ONE Administration ORDERS Category Date Time Status Rapid PCR Covid and Flu A/B Stat Lab 03/31/21 18:52 Received - Radiology Data #1 Image(s): Chest Image Reviewed: Yes I reviewed the patient's radiology results Preliminary Findings: Normal/NAD Medical Decision Narrative: 65yo M eval with concern for hernia. Patient is completely asymptomatic on my evaluation. He is noted to have a low-grade fever. Differential and work-up were broade
[2021-03-31 19:26] VITALS: BP 128/75; PULSE 72; RESP 16; TEMP 36.8; O2SAT 98
== END 2021-03-31 19:35 | disposition home or self-care (01) ==
PROVIDERS: Emergency Provider Family Medicine; PCP Nurse Practitioner Family
DX: R10.84 Generalized abdominal pain (principal); D72.829 Elevated white blood cell count, unspecified; E78.5 Hyperlipidemia, unspecified; I10 Essential (primary) hypertension; Z79.899 Other long term (current) drug therapy
CPT/HCPCS: 71046; 80053; 81001; 85025; 99283; U0003

== ENCOUNTER → 2022-03-07 09:01 | Outpatient (CLI) | payer BC, SELFPAY ==
--- NOTE | 2022-03-07 09:05 | CA_ITS ---
FINAL REPORT TECHNIQUE: Color Doppler, duplex Doppler and sosa scale sonography of the bilateral neck arterial vasculature was performed. Velocities were measured in the carotid arteries. Stenosis evaluation based on the validated velocity criteria. CLINICAL HISTORY: BRUIT,TINGLING RT NECK /ARM,HTN,HLD FINDINGS: The peak systolic velocity of the right common carotid artery is 65 cm/s. The peak systolic velocity of the right internal carotid artery is 96 cm/s and end diastolic velocity 30 cm/s. The ICA/CCA ratio is 1.5. A mild amount of plaque is present. The right external carotid artery is patent. The right vertebral artery is patent with antegrade flow. The peak systolic velocity of the left common carotid artery is 78 cm/s. The peak systolic velocity of the left internal carotid artery is 92 cm/s and end diastolic velocity 32 cm/s. The ICA/CCA ratio is 1.2. A mild amount of plaque is present. The left external carotid artery is patent.The left vertebral artery is patent with antegrade flow. IMPRESSION: Less than 50% bilateral carotid stenosis. Bilateral patent vertebral arteries with antegrade flow. Reviewed, Interpreted and Dictated by Yehuda Etienne III, MD Transcribed by Jessica Skinner Authenticated and [facility]
== END ==
PROVIDERS: PCP Nurse Practitioner Family; Visit Provider Nurse Practitioner Family
DX: R09.89 Other specified symptoms and signs involving the circulatory and respiratory systems (principal); I65.21 Occlusion and stenosis of right carotid artery; R20.2 Paresthesia of skin
CPT/HCPCS: 93880

== ENCOUNTER → 2022-10-04 13:17 | Outpatient (CLI) | payer MEDICARE, SELFPAY ==
[2022-10-04 14:10] LABS: Basophils # 0.1 K/mm3 (0-0.2); Basophils % 1.1 % (0.1-2.0); Eosinophils # 0.8 K/mm3 (0.0-0.4); Hematocrit 52.7 % (42.0-52.0); Hemoglobin 17.2 g/dL (14.1-18.0); Lymphocytes # 2.3 K/mm3 (0.7-4.5); Lymphocytes % 20.9 % (10-50); Mean Corpuscular HGB Conc 32.5 g/dL (31.8-35.4); Mean Corpuscular Hemoglobin 28.5 pg (27.0-31.2); Mean Corpuscular Volume 87.6 fl (80-94); Mean Platelet Volume 8.5 fl (7.4-10.4); Monocytes # 0.6 K/mm3 (0.1-1.0); Monocytes % 5.9 % (1.7-9.3); Neutrophils # 7.1 K/mm3 (1.8-7.8); Neutrophils % 65.1 % (37.0-80.0); Platelet Count 297 K/mm3 (142-424); Red Blood Count 6.02 M/mm3 (4.60-6.20); Red Cell Distribution Width 13.7 % (11.5-17.5); White Blood Count 10.9 K/mm3 (4.8-10.8)
[2022-10-04 14:53] LABS: Alanine Aminotransferase 34 U/L (12-78); Albumin Level 4.5 g/dl (3.5-5.0); Albumin/Globulin Ratio 1.6 (1.1-1.8); Alkaline Phosphatase 113 U/L (38-126); Anion Gap 11.9 mEq/L (5-15); Aspartate Amino Transferase 37 U/L (17-59); Bilirubin,Total 0.7 mg/dl (0.2-1.3); Blood Urea Nitrogen 25 mg/dl (9-20); Carbon Dioxide 26 mmol/L (22.0-30.0); Chloride 106 mmol/L (98-107); Cholesterol 145 mg/dl (140-200); Estimated Glomerular Filt Rate 97 ml/min (>60); GFR (African American) 117 ML/MIN (>60); Globulin 2.8 g/dL (1.3-3.2); Glucose 102 mg/dl (74-100); HDL Cholesterol 36 mg/dl (40-60); Potassium 3.9 mmoL/L (3.5-5.1); Sodium 140 mmol/L (136-145); Total Protein,Serum 7.3 g/dl (6.3-8.2); Triglycerides 75 mg/dl (30-150); VLDL Cholesterol 15 mg/dL (0-40)
[2022-10-04 15:04] LABS: Direct LDL Cholesterol 94.28 mg/dL (100-129)
[2022-10-04 15:25] LABS: Thyroid Stimulating Hormone 1.26 uIU/mL (0.465-4.68)
[2022-10-04 21:22] LABS: Hemoglobin A1C 6.4 % (4.0-6.0)
== END ==
PROVIDERS: PCP Nurse Practitioner Family; Visit Provider Nurse Practitioner Family
DX: I10 Essential (primary) hypertension (principal); R73.03 Prediabetes; E78.5 Hyperlipidemia, unspecified; Z87.39 Personal history of other diseases of the musculoskeletal system and connective tissue
CPT/HCPCS: 36415; 80053; 80061; 83036; 84443; 84550; 85025

== ENCOUNTER 2023-09-11 09:45 | Outpatient (CLI) | payer MEDICARE, SELFPAY ==
--- NOTE | 2023-09-11 09:56 | CT_ITS ---
FINAL REPORT TECHNIQUE: After the administration of oral and intravenous contrast, axial images were obtained through the abdomen and pelvis by computed tomography. The study was performed with techniques to keep radiation dose as low as reasonably achievable, (ALARA). Individual dose reduction techniques using automated exposure control or adjustment of mA and/or kV according to the patient's size were employed. CLINICAL HISTORY: left inguinal hernia COMPARISON: 07/18/2018 FINDINGS: Abdomen: The lung bases are clear. The liver is normal in size and attenuation. The spleen is unremarkable. The adrenals are normal. The pancreas is unremarkable. The kidneys enhance appropriately. The aorta is normal in caliber. There is no free fluid or adenopathy. There is a small umbilical hernia containing fat. Pelvis: The appendix is not identified. There is widespread sigmoid diverticulosis. There is a left inguinal hernia containing nonobstructed portions of sigmoid colon, larger than previous. The urinary bladder is unremarkable. There is no free fluid or adenopathy. IMPRESSION: Left inguinal hernia as above. Reviewed, Interpreted and Dictated by Yehuda Etienne III, MD Transcribed by Nellie Wong Authenticated and [facility]
[2023-09-11 10:32] LABS: Blood Urea Nitrogen 25 mg/dl (9-20); Estimated Glomerular Filt Rate 97 ml/min (>60); GFR (African American) 117 ML/MIN (>60)
[2023-09-11] MEDS: IOPAMIDOL-370 (76%);100ML BOTTLE 75 ML IV (10:51)
[2023-09-11] MEDS: BARIUM SULFATE(READI-CAT2);450ML BOTTLE 450 ML PO (10:51)
== END 2023-09-11 23:59 ==
LOC: RAD 09:49
PROVIDERS: PCP Nurse Practitioner Family; Visit Provider Nurse Practitioner Family
DX: R19.09 Other intra-abdominal and pelvic swelling, mass and lump (principal)
CPT/HCPCS: 36415; 74177; 82565; 84520; Q9967